=== PATIENT | male | born 1940 | race Caucasian/White ===

== ENCOUNTER 2018-10-26 07:59 | Inpatient (IN) | payer OTHER ==
[2018-10-26] VITALS (9 sets, daily range): BP systolic 115–150; BP diastolic 63–76
[~2018-10-26] VITALS: Ht 162.6 cm; Wt 78.9 kg
[~2018-10-26 07:59] MED LIST: ADULT ASPIRIN R81 MG PO; CENTRUM SILVER1 EAC4 PO; FISH OIL 1,2001 EAC4 PO; MIRALAX17 G1 PO
[2018-10-26 08:34] LABS: ABSOLUTE NEUTROPHILS 3.8 thou/uL (1.4-8.2); BASOPHILS 0.7 % (0.0-2.0); EOSINOPHILS 3.9 % (0.0-3.0); HEMATOCRIT 39.8 % (42.0-52.0); HEMOGLOBIN 13.7 gm/dL (14.0-18.0); LYMPHOCYTES 18.6 % (24.0-44.0); MCH 32.9 pg (26.0-34.0); MCHC 34.5 g/dL (28.0-37.0); MCV 95.4 fL (80.0-100.0); MONOCYTES 11.9 % (1.0-8.0); PLATELET COUNT 182 thou/uL (150-400); POLYS 64.9 % (36.0-66.0); RBC 4.16 mil/uL (4.50-6.00); RDW 13.4 % (10.5-14.5); WBC 5.9 thou/uL (4.0-11.0)
[2018-10-26 08:39] LABS: CREATININE 1.1 mg/dL (0.7-1.3); POTASSIUM 4.1 mmol/L (3.5-5.1)
[2018-10-26 08:44] LABS: APTT 30.2 Seconds (24.5-32.8); PROTIME 10.7 Seconds (9.3-11.4)
[2018-10-26 08:45] LABS: ALBUMIN 3.6 g/dL (3.4-5.0); TOTAL BILIRUBIN 0.6 mg/dL (<0.1-1.0); TOTAL PROTEIN 7.7 g/dL (6.4-8.2)
--- NOTE | 2018-10-26 14:22 | 2DMMODE ---
[facility] [place] [address] 2 D/M-MODE ECHOCARDIOGRAM Name: DAVIAN SANDOVAL Room #: REG [facility]#: [id number] ������������� Admission: 10/26/18 ������������� Attend Phys: Stefan Price, Discharge: ��� ������������� ��� Date of : 40 Date of Service: 10/26/18 1422 �� Report #: [id number] �������� ��������������������������������������������[id number] THIS REPORT FOR: //name// ADDENDUM APPROVED REPORT Study performed: 10/26/2018 13:43:02 EXAM: Comprehensive 2D, Doppler, and color-flow Echocardiogram Patient Location: [facility] Room #: 9 Status: routine BSA: 1.85 HR: 47 bpm BP: 127/62 mmHg Other Information Study Quality: Adequate Indications CAD AAA 2D Dimensions IVSd: 10.22 (7-11mm) LVOT Diam: 23.01 (18-24mm) LVDd: 41.92 mm PWd: 9.92 (7-11mm) Ascending Ao: 32.22 (22-36mm) LVDs: 28.94 (25-40mm) Aortic Root: 33.27 mm IVC: 13.00 mm Volumes Left Atrial Volume (Systole) Single Plane 4CH: 37.09 mL Single Plane 2CH: 31.65 mL LA ESV Index: 20.00 mL/m2 Aortic Valve AoV Peak Rudy.: 1.51 m/s AO Peak Gr.: 9.10 mmHg LVOT Max P.44 mmHg LVOT Max V: 0.78 m/s DREW Vmax: 2.15 cm2 Mitral Valve E/A Ratio: 1.0 MV Decel. Time: 238.63 ms MV E Max Rudy.: 0.81 m/s MV A Rudy.: 0.85 m/s [facility] [place] [address] [place] [address] 2 D/M-MODE ECHOCARDIOGRAM Name: DAVIAN SANDOVAL Esau Room #: [facility]#: [id number] ������������� Admission: 10/26/18 ������������� Attend Phys: Stefan Price, Discharge: ��� ������������� ��� Date of : 40 Date of Service: 10/26/18 1422 �� Report #: [id number] �������� ��������������������������������������������[id number] MV PHT: 69.20 ms IVRT: 147.64 ms Pulmonary Valve PV Peak Rudy.: 1.06 m/s PV Peak Gr.: 4.49 mmHg Pulmonary Vein P Vein S: 0.44 m/s P Vein A: 0.28 m/s P Vein D: 0.36 m/s P Vein A Dur.: 152.2 msec P Vein S/D Ratio: 1.22 Left Ventricle The left ventricle is normal size. There is normal LV segmental wall motion. There is normal left ventricular wall thickness. The left ventricular systolic function is normal. The left ventricular ejection fraction is within the normal range. LVEF is 55-60%. Grade I - abnormal relaxation pattern. Right Ventricle The right ventricle is normal size. The right ventricular systolic function is normal. Atria The left atrium size is normal. The right atrium size is normal. Aortic Valve The aortic valve is normal in structure. Aortic valve is calcified. No aortic regurgitation is present. There is no aortic valvular stenosis. Mitral Valve The mitral valve is normal in structure. There is no mitral valve regurgitation noted. No evidence of mitral valve stenosis. Tricuspid Valve The tricuspid valve is normal in structure. There is no tricuspid valve regurgitation noted. Pulmonic Valve The pulmonary valve is normal in structure. There is no pulmonic valvular regurgitation. Great Vessels The aortic root is normal in size. IVC is normal in size and collapses >50% with inspiration. [address] [address] 2 D/M-MODE ECHOCARDIOGRAM Name: DAVIAN SANDOVAL Esau Room #: HEATHER [facility]#: [id number] ������������� Admission: 10/26/18 ������������� Attend Phys: Stefan Price, Discharge: ��� ������������� ��� Date of : 40 Date of Service: 10/26/18 1422 �� Report #: [id number] �������� ��������������������������������������������[id number] Pericardium There is no pericardial effusion. <Conclusion> The left ventricle is normal size. LVEF is 55-60%. Grade I - abnormal relaxation pattern. The right ventricle is normal size. The left ventricle is normal size. LVEF is 55-60%. Grade I - abnormal relaxation pattern. The right ventricle is normal size. The left atrium size is normal. The aortic valve is normal in structure. Aortic valve is calcified. There is no aortic valvular stenosis. There is no mitral valve regurgitation noted. There is no tricuspid valve regurgitation noted. The aortic root is normal in size. There is no pericardial effusion. ��������������������������������������������� <ELECTRONICALLY SIGNED> ���������������������������������������� By: Stefan Price MD, FACC ��������������������������������������������� 10/26/18 142 142 142 Stefan Price MD, FACC /INF
[2018-10-26 15:42] LABS: URINE BILIRUBIN NEGATIVE (Negative); URINE BLOOD NEGATIVE (Negative); URINE CLARITY CLEAR; URINE COLOR YELLOW; URINE GLUCOSE-RANDOM* NEGATIVE (Negative); URINE KETONES NEGATIVE (Negative); URINE LEUKOCYTES-REFLEX NEGATIVE (Negative); URINE NITRITE-REFLEX NEGATIVE (Negative); URINE PROTEIN (DIPSTICK) NEGATIVE (Negative); URINE SPECIFIC GRAVITY <= 1.005 (1.005-1.035); URINE UROBILINOGEN 0.2 E.U./dl (0.2-1.0)
--- NOTE | 2018-10-26 16:59 | EKG ---
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1940 Requested By: Stefan Price Order Number: [id number] MD: Blu Owen Measurements Intervals [place] Rate: 53 P: 29 FL: 274 QRS: -26 QRSD: 114 T: 29 QT: 453 QTc: 426 Interpretive Statements Sinus bradycardia Prolonged FL interval Leftward axis No previous ECG available for comparison Electronically Signed On 10-26-2018 16:59:01 CDT by Blu Owen [email or web address] ��������������������������������������������� <ELECTRONICALLY SIGNED> ���������������������������������������� By: Blu Owen MD, [facility] ��������������������������������������������� 10/26/18 1659 0832 1 Blu Owen MD, FACC /EPI
--- NOTE | 2018-10-26 18:22 | NUR ---
PT ADMITED FROM CARDIAC CATH. ADMISSION HX AND ASSESSMENT COMPLETED. PT ORIENTED TO THE ROOM AND THE CALL SYSTEM. RIGHT GROIN INCISION C/D/I. NO HEMATOMA NOTED. ON BED REST UNTILL 193. FAMILY AT THE BEDSIDE. WILL CONTINUE TO MONITOR.
[2018-10-27] VITALS (9 sets, daily range): BP systolic 89–147; BP diastolic 37–70
--- NOTE | 2018-10-27 03:59 | NUR ---
ASSUMED PT CARE AT 1900. VSS. PT A&0X4. PT GOT OFF BEDREST AT 1930. R GROIN SITE CDI, SOFT, NO HEMATOMA OR BRUISES. AFTER HIS BEDREST WAS OVER, HE GOT UP TO USE THE BATHROOM, HE WAS STADY ON HIS FEET. HE ALSO TOOK A WALK AND HE TOLERATED THE ACTIVITY WELL. HE REMAINS SB ON THE MONITOR. HE IS STABLE, NO COMPLAINTS OF PAIN, NAUSEA, DISTRESS. CONSENTS FOR PROCEDURE AND BLOOD SIGNED THIS AM. WILL CONTINUE TO MONITOR PER POC.
[2018-10-27 05:27] LABS: CHOLESTEROL 180 mg/dL (<200); HDL CHOLESTEROL 37 mg/dL (>40); LDL CHOLESTEROL 123 mg/dL (<100); TC:HDL 4.9 Ratio (Not establshd); TRIGLYCERIDE 101 mg/dL (<150); VLDL 20 mg/dL (<40)
[2018-10-27 05:35] LABS: SERUM ASSESSMENT Clear
--- NOTE | 2018-10-27 13:37 | CATHLAB ---
[facility] [address] [place] [address] INVASIVE PROCEDURE REPORT Name: DAVIAN SANDOVAL Room #: 150-6 ADM IN ..#: [id number] ������������� Admission: 10/27/18 ������������� Attend Phys: Stefan Price, Discharge: ��� ������������� ��� Date of : 40 Date of Service: 10/27/18 1337 �� Report #: [id number] �������� ��������������������������������������������[id number] THIS REPORT FOR: //name// APPROVED REPORT Study performed: 10/26/2018 12:53:57 Patient Details The patient is a 78 year-old male Event Personnel Stefan Price Post Doctoral Researcher, Sahra Emery, Trinh Nelson Amber Scrub, Knisely, Ceola RN carton repairer Performed Left Heart Cath w/or w/o Coronaries [id number] [facility] Indication Chest pain Procedure Narrative A 6F 23CM BRITE-TIP sheath was inserted into the RFA^. Coronary angiography was performed using coronary diagnostic catheters. The right coronary system was accessed and visualized with a JR4 catheter. The left coronary system was accessed and visualized with a JL4 catheter. The left ventricle was accessed and visualized with a PIGTAIL catheter. Hemostasis was obtained with manual pressure following sheath removal without any complications. There was no hematoma. Intraoperative Conscious Sedation Fentanyl 125 mcg Versed 2 mg Fluoro Time: 25.64 minutes Dose: DAP 70.00 cGycm2 310 mGy Contrast Type and Amount: Omnipaque 209 ml Hemodynamics The aortic pressure is 145/48 mmHg with a mean of 65 mmHg. The left ventricular pressure is 141/12 mmHg with a mean of mmHg. The left ventricular end diastolic pressure is 20 mmHg. Conclusion #1 normal left jugular size and systolic function EF 60% #2 left main long free of disease giving rise to LAD and [facility] [address] [place] [address] INVASIVE PROCEDURE REPORT Name: DAVIAN SANDOVAL Room #: 150-6 ADM IN ..#: [id number] ������������� Admission: 10/27/18 ������������� Attend Phys: Stefan Price, Discharge: ��� ������������� ��� Date of : 40 Date of Service: 10/27/18 1337 �� Report #: [id number] �������� ��������������������������������������������[id number] circumflex #3 LAD is mild a moderately diseased mid vessel 3040% with calcification is a type I stops short of the apex. No significant occlusive disease #4 circumflex OM is nondominant with an eccentric calcified ostial lesion in the 70% range but this is small distribution we'll treat that medically #5 Dominant right coronary artery with an eccentric 30-40% lesion otherwise a well preserved vessel PDA IRINA preserved. Remissions and plan: Continue aggressive risk factor modification. The patient will undergo aortic stent graft repair for aortic and iliac aneurysms. Would initiate statin therapy. And consider low-dose beta servando. Serial follow-up regarding this moderate coronary disease but no other testing and clearance for surgery is improved. ��������������������������������������������� <ELECTRONICALLY SIGNED> ���������������������������������������� By: Stefan Price MD, FACC ��������������������������������������������� 10/27/18 1337 36 36 Stefan Price MD, FAC /INF
--- NOTE | 2018-10-27 15:02 | HC ---
[facility] [address] [place] [address] CONSULTATION Name: DAVIAN SANDOVAL Room #: 150-6 ADM IN M.R.#: [id number] Admission: 10/27/18 ������������������ Attend Phys: Stefan Price MD, Discharge: ������������������ Date of : 40 Report #: [id number] THIS REPORT FOR: //name// CC: FAM unknown Stefan COLUNGA DATE OF SERVICE: 10/26/2018 We were asked to see the patient by Dr. Price and Dr. Abdullahi. HISTORY OF PRESENT ILLNESS: The patient is a 78-year-old with an abdominal aortic aneurysm. The patient states that he has known of this aneurysm for 6-7 years. It was initially discovered by a [employer] and has been followed since that time. The aneurysm has been seen to grow, although it is asymptomatic. This appears to be the indication for intervention. CT scan shows a large infrarenal abdominal aortic aneurysm with aneurysmal iliac arteries and the hypogastric extension. PAST MEDICAL HISTORY: The patient claims to be healthy fellow. He takes no regularly prescribed medications and denies problems with hypertension and diabetes. ALLERGIES: Years ago, had a headache after receiving codeine, but no true allergic reaction. FAMILY HISTORY: Negative for aneurysm disease. SOCIAL HISTORY: Reveals the patient is a smoker. He lives in [place]. He is currently . REVIEW OF SYSTEMS: CONSTITUTIONAL: No weight gain or loss or fever. EYES: No visual changes. ENT: No hearing loss. No sore throat. RESPIRATORY: No snoring, hemoptysis or dyspnea. CARDIAC: No chest pain, diaphoresis, orthopnea, palpitations or syncope. VASCULAR: No claudication. No edema. GASTROINTESTINAL: No nausea, reflux or bleeding. GENITOURINARY: No hematuria or nocturia. ENDOCRINE: No goiter or tremors. NEUROLOGIC: No dizziness. No memory loss. No seizures. PSYCHIATRIC: No depression or hallucinations. [facility] [address] [place] [address] CONSULTATION Name: DAVIAN SANDOVAL Room #: 150-6 [facility] IN [facility]#: [id number] Admission: 10/27/18 ������������������ Attend Phys: Stefan Price MD, Discharge: ������������������ Date of : 40 Report #: [id number] SKIN: No rash or infection. MUSCULOSKELETAL: No joint pain, bone pain or myalgias. HEMATOLOGIC: No anemia or thrombocytopenia. PHYSICAL EXAMINATION: GENERAL: The patient is a pleasant, fellow lying in bed, without distress. VITAL SIGNS: Blood pressure 108/66, heart rate 64. HEAD: Normocephalic. EYES: Pupils are round, equal to equal in size and react to light. NECK: No mass, no bruit. CHEST: Clear to auscultation. HEART: Rhythm regular, with a grade 2 systolic murmur at the base. ABDOMEN: Soft. No tenderness. EXTREMITIES: No clubbing, cyanosis or edema. VASCULAR: With 2+ radial, femoral and dorsalis pedis pulses. SKIN: No rash or infection. PSYCHIATRIC: Pleasant fellow, shows insight into problem and answers questions appropriately. NEUROLOGIC: No motor or sensory dysfunction. ASSESSMENT: The patient has infrarenal abdominal aortic aneurysm with iliac involvement. We note the plan is for catheterization today. We planned stent graft implant tomorrow. The risks and details of surgery were discussed. These include, but are not limited to, bleeding, infection, anesthesia risks, heart and lung problems and failure of the device. The followup including serial CT scans was discussed and the patient understands all of this and he wishes to proceed. Thank you very much for the consult. ��������������������������������������������� <ELECTRONICALLY SIGNED> ���������������������������������������� By: Todd Jeter MD ��������������������������������������������� 10/27/18 1502 0913 2357 Todd Jeter MD /nt
--- NOTE | 2018-10-27 17:07 | NUR ---
PT ARRIVED TO ROOM 247 POST AAA REPAIR. RAQUEL GROIN DRESSINGS C/D/I. PT HAS L RAD A LINE. CARDENE GTT TO MAINTAIN SBP <130. PT A/O X 4. C/O RAQUEL GROIN CRAMPING, STATES HE NEEDS TO PASS GAS, BOWEL SOUNDS HYPOACTIVE. SCD'S ON. SB-SR ON TELE. FAMILY AT BEDSIDE AND ORIENTED TO ROOM AND UNIT WITH PATIENT. BELONGINGS FROM CCU BROUGHT OVER TO ROOM 247
[2018-10-28] VITALS (21 sets, daily range): BP systolic 90–118; BP diastolic 43–61
--- NOTE | 2018-10-28 02:06 | NUR ---
10/28/18 0200 Patient complains of abdominal/chest pain. EKG done which showed SR with 1 degree AV Block and no ST elevation noted.
[2018-10-28 05:15] LABS: HEMATOCRIT 30.8 % (42.0-52.0); MCH 33.7 pg (26.0-34.0); MCHC 34.6 g/dL (28.0-37.0); MCV 97.6 fL (80.0-100.0); RBC 3.16 mil/uL (4.50-6.00); RDW 13.5 % (10.5-14.5); WBC 10.6 thou/uL (4.0-11.0)
[2018-10-28 05:23] LABS: HEMOGLOBIN 10.7 gm/dL (14.0-18.0)
[2018-10-28 05:25] LABS: CALCIUM 7.6 mg/dL (8.5-10.1); CREATININE 1.2 mg/dL (0.7-1.3); POTASSIUM 3.8 mmol/L (3.5-5.1)
--- NOTE | 2018-10-28 05:26 | NUR ---
ASSUMED CARE OF PT AT 1900. PT ALERT AND ORIENTED X4. PT HAS BEEN C/O LOWER ABDOMINAL PAIN THROUGH OUT THE SHIFT. PT GIVEN MORPHINE WITH PARTIAL RELIEF OF PAIN. PT HAS ALSO C/O NAUSEA INTERMITTENTLY THROUGH OUT SHIFT. AT APPRXIMATELY 0200 PT STARTED C/O PAIN ON HIS LOWER ABDOMEN AND PAIN IN THE CENTER OF THE CHEST. PER PT, "PAIN FELT LIKE GAS PAIN." 12 EKG OBTAINED AT THAT TIME AND SHOWED SR WITH A FIRST DEGREE AV BLOCK. PT GIVEN SODA AND PRUNE JUICE THIS AM WITH IMPROVEMENT OF SYMPTOMS. WILL CONTINUE TO MONITOR PT.
--- NOTE | 2018-10-28 09:29 | EKG ---
[address] [place] [address] ELECTROCARDIOGRAM REPORT Name: DAVIAN SANDOVAL Room #: 247-P ADM IN M.R.#: [id number] ������������������ Admission: 10/27/18 ������������������ Attend Phys: Stefan Price MD, Discharge: ������������������ Date of : 40 Report #: [id number] ����������������������������������������������������������������� [id number] THIS REPORT FOR: //name// [facility] Test Date: 2018-10-28 Test Time: 01:51:20 Pat Name: DAVIAN SANDOVAL Department: Room: 247 P Gender: M Backfiller: kate : 1940 Requested By: Stefan Price Order Number: [id number] MD: Blu Owen Measurements Intervals [place] Rate: 69 P: 46 LA: 231 QRS: -35 QRSD: 95 T: 36 QT: 611 QTc: 655 Interpretive Statements Sinus rhythm Prolonged LA interval RSR' in V1 or V2, probably normal variant Prolonged QT interval Compared to ECG 10/26/2018 08:32:25 RSR' in V1 or V2 now present Prolonged QT interval now present Sinus bradycardia no longer present Electronically Signed On 10-28-2018 9:29:47 CDT by Blu Owen [email or web address] ��������������������������������������������� <ELECTRONICALLY SIGNED> ���������������������������������������� By: Blu Owen MD, [facility] ��������������������������������������������� 10/28/18 0929 0 0 Blu Owen MD, [facility] /EPI
[2018-10-28] MEDS ORDERED: CLOPIDOGREL75 MG PO (15:10)
[2018-10-28] MEDS ORDERED: ATORVASTATIN CA40 MG PO (15:10)
--- NOTE | 2018-10-28 15:23 | O ---
[facility] [place] [address] [address] OPERATIVE REPORT Name: DAVIAN SANDOVAL Room #: 247-P ADM IN M.R.#: [id number] Admission: 10/27/18 ������������������ Attend Phys: Stefan Price MD, Discharge: ������������������ Date of : 40 Report #: [id number] THIS REPORT FOR: //name// CC: FAM unknown Stefan COLUNGA DATE OF SERVICE: 10/27/2018 PREOPERATIVE DIAGNOSIS: Abdominal and bilateral iliac artery aneurysms. POSTOPERATIVE DIAGNOSIS: Abdominal and bilateral iliac artery aneurysms. OPERATION: Implant of abdominal aortic aneurysm stent graft with left iliac extension and intraoperative arteriograms with angioplasties. SURGEON: Todd Jeter MD. and Goldy Osborne MD. ANESTHESIA: General. INDICATIONS: The patient is a 78-year-old with large infrarenal abdominal aortic aneurysm and bilateral iliac artery aneurysms. The right hypogastric was relatively small and was coiled preoperatively and an Amplatz plug was placed into the inferior mesenteric artery by Dr. Osborne. Because the left common iliac was large and the right hypogastric was occluded, we needed to maintain flow into the remaining left hypogastric and this was the indication for the iliac branch extension device on the left. FINDINGS AND TECHNIQUE: After general anesthesia was established, incisions were made in each groin to expose the common femoral artery. 10,000 units of heparin were given and the right side arterial access was gained with the Amplatz needle and J-wire was passed. A 5-Kazakh sheath was placed and the wire was exchanged with a Berenstein catheter for Gladys wire. Once the Gladys wire was in, a 5-Kazakh sheath was replaced with the 12-Kazakh introducer sheath. On the left side, a similar procedure was performed, but a 16-Kazakh sheath was placed. A second wire was passed from the left side into the distal aorta and this was captured with a snare placed through the right-sided 12-Kazakh sheath. This wire was brought out through the sheath and was the wire over which we were able to place the left iliac extension device. A 23 x 12 x 10 iliac branch extension device was passed over the Gladys wire and the floppy wire in the left-sided 16-Kazakh sheath and this was positioned so that the hypogastric limb would open medially. [facility] [address] [place] [address] OPERATIVE REPORT Name: DAVIAN SANDOVAL Room #: 247-P [facility] IN .R.#: [id number] Admission: 10/27/18 ������������������ Attend Phys: Stefan Price MD, Discharge: ������������������ Date of : 40 Report #: [id number] Flush arteriograms were taken intermittently to confirm good placement. Through the right side, the 12-Kazakh introducer and sheath were advanced around the aortic bifurcation. Unfortunately, it was a bit stiff at the left common iliac takeoff and it was necessary to perform an angioplasty at this point with a 12 mm balloon. Once this area was dilated, we were able to pass the introducer around the aortic bifurcation and down into the left common iliac artery down and into the gate for the hypogastric. Through the sheath, wire was passed into the hypogastric artery and then this was followed with a catheter. Once we had good purchase, we were able to pass over a stiffer wire exchanged through the catheter, a 10 mm x 7 cm limb into the left hypogastric artery. When this limb was in good position, it was maximally dilated with an 8 mm balloon in the hypogastric and a 12 mm balloon at the hypogastric gate of the iliac branch device. A flush arteriogram was done that showed good flow through both limbs of the iliac branch device and no evidence of improper position. With this device in place, then the aortic aneurysm Excluder device was placed. A 26 cm x 14.5 x 18 main component was placed through the right side. Position was ascertained by a visceral catheter having been placed in the right renal artery and several positions were done to make sure that we had optimal position to both maintain good flow into the renal arteries and satisfactory proximal landing zone for the main component. The main component was opened and the contralateral gate was entered. Good position in the gate was done with the pigtail spin technique. This gate was used to connect to the previously placed iliac branch device. A 27 mm x 14 limb was placed over the Gladys wire into the contralateral gate of the main component down into the iliac branch device. The main component was fully deployed now into the right iliac artery and then a marked pigtail catheter was placed over the Gladys wire in the right iliac limb to measure the graft necessary to complete the right side. A 12 cm x 12 mm limb was placed to have good landing zone in the external iliac artery below the coiled hypogastric and well into the previously placed right iliac limb of the main component. Now that all of the components had been deployed, the [place] compliant balloon was used to maximally dilate the graft at the proximal landing zone and at the overlap sites and then 12 mm balloons were used in kissing balloon technique at the flow divider area of the main component and at the aortic bifurcation to [facility] [address] [place] [address] OPERATIVE REPORT Name: DAVIAN SANDOVAL Room #: 247-P [facility] IN M.R.#: [id number] Admission: 10/27/18 ������������������ Attend Phys: Stefan Price MD, Discharge: ������������������ Date of : 40 Report #: [id number] fully dilate the graft and to treat some stenotic areas present at the bifurcation. The remainder of the grafts were fully dilated with either the compliant or noncompliant balloons. When the grafts have been fully distended, a final flush arteriogram was done. This showed good flow through the device with no evidence of leaks at the proximal landing zone, distal landing zone, or overlap zones. Satisfied with our arteriogram, the dilators were replaced through the sheaths over the Gladys wires and then the dilator and sheaths were removed and then the wires were removed. The femoral arteriotomies were closed with interrupted 6-0 Prolene. Flow was reestablished. Protamine was given to reverse the heparin. When hemostasis was satisfactory, the groins were closed in layers. The patient tolerated the procedure well and was taken to the recovery area in good condition. All counts reported as correct and strong distal pulses were present prior to leaving the operative suite. The patient tolerated the procedure well. ��������������������������������������������� <ELECTRONICALLY SIGNED> ���������������������������������������� By: Todd Jeter MD ��������������������������������������������� 10/28/18 1523 1631 1839 Todd Jeter MD /nt
--- NOTE | 2018-10-28 18:06 | NUR ---
PT HAD INTERMITTENT NAUSEA THROUGHOUT DAY WHEN STANDING UP, RELIEVED BY ZOFRAN. PT CONTROLLED WITH ONE PAIN PILL, PAIN RATED 3/10, AND REPORTS TOLERABLE. VITAL SIGNS STABLE THROUGHOUT DAY, INCREASED ACTIVITY, AMBULATED AROUND UNIT WITH WALKER WITH STAND BY ASSIST. TOLERATED CEREAL FOR BREAKFAST, AND 50% OF DINNER. 1700 REGULO AT BEDSIDE, DISCUSSED TODAYS EVENTS, PT AGREES TO STAY ONE MORE NIGHT AND DISCHARGE TOMORROW.
[2018-10-29] VITALS (11 sets, daily range): BP systolic 101–140; BP diastolic 50–68
--- NOTE | 2018-10-29 06:17 | NUR ---
ASSUMED PATIENT CARE AT 1900. PATIENT AAOX4 WITH NO COMPLAINTS OF PAIN, NAUSEA, OR VOMITING. PATIENT IS ON 2L NC AND WILL DESAT WITHOUT THE SUPPLEMENTAL OXYGEN. PATIENT AMBULATORY WITH STANDBY ASSISTANCE. VS REMAINED STABLE. PATIENT PROGRESSING TOWARDS GOAL.
[2018-10-29] MEDS ORDERED: ONDANSETRON HCL4 M2 PO (08:27)
--- NOTE | 2018-10-29 10:36 | H ---
[facility] [place] [address] HISTORY AND PHYSICAL Name: DAVIAN SANDOVAL Room #: 247-P ADM IN M.R.#: [id number] Admission: 10/27/18 ������������������ Attend Phys: Stefan Price MD, Discharge: ������������������ Date of : 40 Report #: [id number] THIS REPORT FOR: //name// CC: FAM unknown Stefan Bailey DATE OF SERVICE: 10/26/2018 HISTORY OF PRESENT ILLNESS: The patient is a 78-year-old male who was admitted for evaluation of the abdominal and bilateral iliac aneurysms, which are becoming significant in size. He had original workup up at [facility] in [place], [place]. He does not have documented coronary artery disease, but has been having some questionable anginal symptoms. Was noted to have significant vascular calcification on prior studies and coronary calcification on prior CAT scan. The only history is an echo done from 2013, which had some borderline LVH and otherwise was a normal echo. He only takes a baby aspirin, fish oil and a multivitamin and occasional laxative. He denies PND or orthopnea. He is a longtime smoker until 5 years ago, something close to 60-70 pack years. His EKG has some nonspecific changes. He denies PND, orthopnea or peripheral edema. There is a definite decrease in exercise tolerance. PAST MEDICAL HISTORY: Positive for a colon resection, was benign; the abdominal and iliac aneurysms, which is now scheduled for repair. There will have to be coiling of the CEZAR, and the right internal iliac. DJD, history of prostate cancer, prostatectomy, and radiation and COPD secondary to longstanding tobacco use. SOCIAL HISTORY: He has remarried his . Original from lung cancer, two children. He is a minimal drinker and no current smoker, but a 99-prtv-bqux history. FAMILY HISTORY: Negative for premature coronary artery disease. LABORATORY WORK: He has an H and H of 13.7 and 39.8. His creatinine was 1.1. REVIEW OF SYSTEMS: Essentially negative except for some occasional nocturia and decreased shortness of breath and as stated above. PHYSICAL EXAMINATION: VITAL SIGNS: Blood pressure was 150/70, pulse was 60s and regular. HEENT: Eyes reveal xanthelasmas. His pharynx is clear. NECK: Shows preserved upstrokes without JVD or bruits. LUNGS: Clear. CARDIOVASCULAR: Regular rate and rhythm, S1, S2. There is a faint systolic [facility] [address] [place] [address] HISTORY AND PHYSICAL Name: DAVIAN SANDOVAL Room #: 247-P [facility] [place] ..#: [id number] Admission: 10/27/18 ������������������ Attend Phys: Stefan Price MD, Discharge: ������������������ Date of : 40 Report #: [id number] ejection murmur at right sternal border. ABDOMEN: Soft. There is a pulsatile abdominal aorta and a faint bruit. EXTREMITIES: Femoral pulses are slightly diminished, but intact. NEUROLOGIC: Nonfocal. SKIN: Warm and dry without xanthoma or ulcer. MUSCULOSKELETAL: Generalized arthritic changes. ASSESSMENT: 1. Abdominal and iliac aneurysms, approaching 3-cm iliac aneurysms and a 4.1 aortic aneurysm. The iliac aneurysms are significant, the 3.75 in the right iliac. 2. Chronic obstructive pulmonary disease with history of longstanding tobacco use. 3. Coronary artery disease as manifested by coronary calcification, possible/anginal equivalent. RECOMMENDATIONS AND PLAN: We will proceed to the catheterization lab for coronary angiography and abdominal aortography, CEZAR coiling and iliac coiling if we do not need to intervene coronary bustillos and then, aortic stent graft to follow. ADDENDUM: The patient has got moderate 3-vessel coronary artery disease, but nothing occlusive. I just performed a catheterization, 50% ostial circ, 30%-40% LAD and RCA lesions. Preserved LV function. Due to the length of this procedure and the potential for some bleeding here and the fact that we now have occluded iliac and CEZAR, I am going to observe overnight and presumably perform aortic stent graft in the a.m. with Dr. Osborne and Dr. Jeter. Thank you for asking me to assist in the care of this patient. ��������������������������������������������� <ELECTRONICALLY SIGNED> ���������������������������������������� By: Stefan Price MD, FACC ��������������������������������������������� 10/29/18 [id number] Stefan Price MD, FACC /nt
--- NOTE | 2018-10-29 12:26 | NUR ---
NURSE MAILED PT GRAFT INFORMATION CARDS TO HOME ADDRESS IN [place].
== END 2018-10-29 10:45 | disposition home or self-care (01) | DRG 268 ==
LOC: CATH 07:59 → 2N 16:21 → CATH 16:22 → ICU 10-27 09:07 → TBA 10-27 09:07 → 2N 10-27 09:07 → TBA 10-27 10:42 → ICU 10-27 15:59
PROVIDERS: Physician Assistant; Surgery Vascular Surgery; ADMIT Internal Medicine Cardiovascular Disease
PROC: 04VE3DZ Restriction of Right Internal Iliac Artery with Intraluminal Device, Percutaneous Approach (ICD-10-PCS; 2018-10-26)
PROC: B4141ZZ Fluoroscopy of Superior Mesenteric Artery using Low Osmolar Contrast (ICD-10-PCS; 2018-10-26)
PROC: B4181ZZ Fluoroscopy of Bilateral Renal Arteries using Low Osmolar Contrast (ICD-10-PCS; 2018-10-26)
PROC: B4151ZZ Fluoroscopy of Inferior Mesenteric Artery using Low Osmolar Contrast (ICD-10-PCS; 2018-10-26)
PROC: B41D1ZZ Fluoroscopy of Aorta and Bilateral Lower Extremity Arteries using Low Osmolar Contrast (ICD-10-PCS; 2018-10-26)
PROC: 04VB3DZ Restriction of Inferior Mesenteric Artery with Intraluminal Device, Percutaneous Approach (ICD-10-PCS; 2018-10-26)
PROC: 04V03DZ Restriction of Abdominal Aorta with Intraluminal Device, Percutaneous Approach (ICD-10-PCS; principal; 2018-10-27)
PROC: B2111ZZ Fluoroscopy of Multiple Coronary Arteries using Low Osmolar Contrast (ICD-10-PCS; 2018-10-27)
PROC: 04VK3DZ Restriction of Right Femoral Artery with Intraluminal Device, Percutaneous Approach (ICD-10-PCS; 2018-10-27)
PROC: 04VL3DZ Restriction of Left Femoral Artery with Intraluminal Device, Percutaneous Approach (ICD-10-PCS; 2018-10-27)
PROC: 4A023N7 Measurement of Cardiac Sampling and Pressure, Left Heart, Percutaneous Approach (ICD-10-PCS; 2018-10-27)
PROC: B4181ZZ Fluoroscopy of Bilateral Renal Arteries using Low Osmolar Contrast (ICD-10-PCS; 2018-10-27)
DX: I71.4 Abdominal aortic aneurysm, without rupture (principal); I50.33 Acute on chronic diastolic (congestive) heart failure; I10 Essential (primary) hypertension; E11.9 Type 2 diabetes mellitus without complications; M19.90 Unspecified osteoarthritis, unspecified site; J44.9 Chronic obstructive pulmonary disease, unspecified; I25.10 Atherosclerotic heart disease of native coronary artery without angina pectoris; I72.3 Aneurysm of iliac artery; E78.00 Pure hypercholesterolemia, unspecified; Z90.49 Acquired absence of other specified parts of digestive tract; Z85.46 Personal history of malignant neoplasm of prostate
CPT/HCPCS: 10078; 10081; 47375; 48888; 50010; 50101; 50386; 50455; 51078; 51751; 54118; 56524; 56526; 56531; 56668; 56760; 57093; 62110; 62900; 65020; 65040; 70005

== ENCOUNTER → 2018-12-29 | Outpatient (CLI) | payer OTHER ==
[~2018-12-29] MED LIST changes: +ATORVASTATIN CA40 MG PO; +CLOPIDOGREL75 MG PO; +ONDANSETRON HCL4 M2 PO
[2018-12-29 12:20] LABS: POTASSIUM 4.6 mmol/L (3.5-5.1)
== END ==
LOC: CAT 11:41
PROVIDERS: Internal Medicine Cardiovascular Disease
DX: Z01.812 Encounter for preprocedural laboratory examination (principal); K86.89 Other specified diseases of pancreas; K43.9 Ventral hernia without obstruction or gangrene; Z98.890 Other specified postprocedural states; Z86.79 Personal history of other diseases of the circulatory system